=== PATIENT | female | born 1990 | race Caucasian/White ===

== ENCOUNTER 2018-05-20 11:42 | Outpatient (CLI) | payer OTHER ==
--- NOTE | 2018-05-20 15:31 | RAD ---
THREE VIEWS THORACIC SPINE: Date: 05-20-18 History: Dorsalgia. FINDINGS: Vertebral body heights and intervertebral disc spaces are within normal limits. No fracture or sublux ation is seen involving the thoracic spine. IMPRESSION: No acute osseous abnormality. POS: [facility]
--- NOTE | 2018-05-20 16:24 | RAD ---
LUMBAR SPINE TWO VIEWS: History: 28-year-old female with history of dorsalgia. FINDINGS: AP and lateral only views of the lumbar spine demonstrate considerable solid fecal material within th e rectum, evidence for obstipation. There is some motion artifact. Mild levoscoliosis of the lower th oracic vertebral column. IMPRESSION: Mild levoscoliosis lower thoracic vertebral column. No significant acute fracture or dislocation. POS: [facility]
--- NOTE | 2018-05-20 16:26 | RAD ---
CERVICAL SPINE THREE VIEWS: History: 28-year-old female with history of dorsalgia. FINDINGS: AP, open mouth and swimmer's view of the cervical spine demonstrates the cervical spine from C4, C5, C6, C7 and T1 on the lateral view to be mostly obscured. C1 and portions of C2 odontoid are obscured on the AP open mouth view. No significant prevertebral soft tissue swelling. No overt malalignment. IMPRESSION: No significant acute process as visualized. POS: [facility]
== END 2018-05-20 11:43 | disposition home or self-care (01) ==
LOC: BICRAD 11:42
PROVIDERS: ATTEND Physician Assistant
DX: M54.9 Dorsalgia, unspecified (principal); M41.9 Scoliosis, unspecified
CPT/HCPCS: 36415; 72040; 72072; 72100; 80053; 80061; 82306; 84443; 85025

== ENCOUNTER 2018-09-08 20:33 | Emergency (ER) | payer OTHER ==
[2018-09-08 20:57] LABS: #Basophils 0.1 thou/uL (0.0-0.2); #Eosinphils 0.1 thou/uL (0.0-0.7); #Lymphocytes 1.5 thou/uL (1.20-3.40); #Monocytes 0.6 thou/uL (0.11-0.59); #Neutrophils 4.2 thou/uL (1.40-6.50); %Eosinophils 1.9 % (0.0-10.0); %Lymphocytes 23.7 % (21.0-51.0); %Neutrophils 64.4 % (42.0-75.0); Hemoglobin 14.2 g/dL (12.0-16.0); Mean Corpuscular HGB CONC 33.7 g/dL (32.0-36.0); Mean Corpuscular Hemoglobin 33.3 pg (27.0-31.0); Mean Corpuscular Volume 98.8 fL (78.0-98.0); Mean Platelet Volume 9.4 fL (7.4-10.4); Platelet Count 174 thou/uL (130-400); RBC Distribution Width 11.2 % (11.5-14.5); Red Blood Cell (RBC) Count 4.26 mill/uL (4.20-5.40); White Blood Cell (WBC) Count 6.5 thou/uL (4.8-10.8)
[2018-09-08 21:18] LABS: ALT (SGPT) 18 U/L (8-55); AST (SGOT) 24 U/L (5-34); Albumin 4.5 g/dL (3.5-5.0); Alkaline Phosphatase 63 U/L (40-150); Anion Gap 14 mmol/L (10-20); BUN (Urea Nitrogen) 11 mg/dL (7.0-18.7); Bilirubin, Total 0.5 mg/dL (0.2-1.2); Calc. Creatinine Clearance 0 mL/min (70-130); Calcium 10.2 mg/dL (7.8-10.44); Carbon Dioxide 24 mmol/L (22-29); Chloride 103 mmol/L (98-107); Estimated GFR-MDRD 80; Globulin 3.2 g/dL (2.4-3.5); Glucose 105 mg/dL (70-105); Potassium 4.1 mmol/L (3.5-5.1); Protein, Total 7.7 g/dL (6.0-8.3); Sodium 137 mmol/L (136-145)
[2018-09-08 21:54] LABS: Bilirubin Negative (Negative); Blood, Urine Negative (Negative); Clarity CLEAR (Clear); Glucose, Urine (Dipstick) Negative (Negative); Leukocyte Small (Negative); Nitrite Negative (Negative); Protein, Urine (Dipstick) 100 mg/dL (Neg-Trace); Specific Gravity, Urine 1.023 (1.002-1.036); Urobilinogen 0.2 mg/dL (0.2-1.0)
[2018-09-08 21:58] LABS: Bacteria/HPF Rare-Few HPF (None Seen); Hyaline Casts/LPF 0-3 HYALINE CAST LPF (0-3 Hyaline); Pathc Cast-AUWi Flag 0.58 (0-2.49); Squamous Epithelial 0-3 HPF (0-3)
[2018-09-08 22:07] LABS: RBC/HPF 0-3 HPF (0-3)
[2018-09-08 23:32] LABS: Pregnancy Test - Urine (BHCG) Negative (Negative); Pregu Control Background? CLEAR/WHITE (CLR/WHITE); Pregu Control Bar Appear? YES (CONTROL BAR); Specific Gravity 1.021 (1.002-1.036)
[2018-09-09 02:39] LABS: Amphetamine Not Detected (NotDetected); Barbiturates Screen Not Detected (NotDetected); Benzodiazepine Screen Not Detected (NotDetected); Cocaine Metabolite Screen Not Detected (NotDetected); Medtox Control Line Valid? VALID (VALID); Medtox Reader # READER 1; Methadone Not Detected (NotDetected); Methamphetamine Not Detected (NotDetected); Opiate Screen Not Detected (NotDetected); Oxycodone Screen Not Detected (NotDetected); Phencyclidine (PCP) Not Detected (NotDetected); THC/Cannabinoid Screen Not Detected (NotDetected); Tricyclic Screen Not Detected (NotDetected)
[2018-09-09 02:46] LABS: Acetaminophen Less than 6.0 mcg/mL (10.0-30.0); Alcohol Less than 10 mg/dL (Less than 10); Salicylate Less than 8.0 mg/dL (15.0-30.0)
== END 2018-09-09 08:41 | disposition home or self-care (01) ==
LOC: ERS 20:33
DX: R11.10 Vomiting, unspecified (principal)
CPT/HCPCS: 80053; 80306; 80307; 81003; 81015; 81025; 82010; 83690; 84443; 85025; 87086; 99284